=== PATIENT | female | born 1960 | race Caucasian/White ===

== ENCOUNTER 2018-08-19 13:24 | Emergency (ER) | payer BC, SELFPAY ==
[2018-08-19 13:27] VITALS: BP 154/77; PULSE 78; RESP 16; TEMP 36.6; O2SAT 98
--- NOTE | 2018-08-19 13:39 | DI.CT_ITS ---
SYMPTOM/DIAGNOSIS: RT SUPRACLAVICULAR PAIN, FOREIGN BODY SENSATION NECK CT: CT scan of the neck was performed following the uneventful administration of intravenous contrast material. There are no priors for comparison. The visualized intracranial structures are unremarkable. The orbits and retro-orbital soft tissues are unremarkable. The parotid and submandibular glands have a normal appearance. The nasopharynx, oropharynx, hypopharynx and larynx are all unremarkable. The epiglottis has a normal appearance. The thyroid gland is unremarkable. No significant cervical adenopathy is seen. No focal fluid collection or soft tissue mass is appreciated. The lung apices are clear. Mild degenerative changes are seen in the spine. IMPRESSION: No acute abnormality.
--- NOTE | 2018-08-19 13:42 | ED.GENADUL_ITS ---
Discharge Plan Disposition Patient Disposition: HOME Condition: Improving Discharge Details Chief Complaint: ThroatFB Clinical Impression: Pill esophagitis Primary Care Provider: Yuko,Local ED Provider: Mike Mehta Home Meds and New Rx's Prescriptions: Continued levothyroxine [Synthroid] 100 mcg Tablet 100 mcg PO DAILY RF: 0 magnesium oxide 400 mg magnesium Tablet PO DAILY RF: 0 Discharge Instructions Additional Instructions: Home to rest this evening. Observe a soft diet for 24 hours and then may slowly advance as tolerated. Return for difficulty swallowing or breathing, or any other acute concerns Continue your regular medications. Medical Decision Making 58-year-old female with right throat foreign body sensation after swallowing 2 magnesium capsules last night and feeling that they got stuck. She had no vomiting. No drooling. She has had discomfort with swallowing but has been able to take liquids by mouth. She is slightly hypertensive at 150/77 but with otherwise normal vital signs. Her exam is reassuring. Referred for screening laboratories and CT scan of the neck with IV contrast to rule out retained foreign body, abscess, perforation. CBC and chemistries unremarkable. CT scan does not reveal any acute findings of the right supraclavicular fossa. Patient stable and improved with GI cocktail. I will have her maintain a soft diet for 24 hours and then slowly resume normal routine and diet as tolerated. HPI General Mode of arrival: ambulatory . Date/Time Provider Initiated Documentation: 08/19/18 13:25 . Limitations to Documentation: no limitations . Information obtained by: patient . History of Present Illness 58 year old F presents to the emergency department with the chief complaint of Foreign body sensation right throat since last night, described as moderate, Quality is described as aching, and is localized to the mouth and right. Patient reports no radiation. and it has been constant. No relieving factors improve symptom(s), Eating worsens symptoms and Other factors that worsen symptoms . Patient notes no other symptoms.. Patient did receive the following treatments prior to arrival, none Related Data Home Medications Medication Instructions Recorded Confirmed levothyroxine [Synthroid] 100 mcg PO DAILY 08/19/18 08/19/18 magnesium oxide mg PO DAILY 08/19/18 Allergies Allergy/AdvReac Type Severity Reaction Status Date / Time No Known Allergies Allergy Unverified 08/19/18 13:33 General Stated Complaint: ThroatFB ALEXX: 3 Review of Systems Review of Systems Mild headache no difficulty breathing, no drooling, tolerating liquids by mouth. No recent illness. 8 systems reviewed and otherwise negative [facility] Social History Smoking/Tobacco Use Status: Never Substance use type: does not use Do you feel safe at home: Yes Do you feel safe in your relationship?: Yes Exam Narrative Exam Narrative: GEN: awake, alert, oriented 3. Pleasant, well groomed, interactive. HEAD: Normocephalic, atraumatic ENT: Mucous membranes moist, oropharynx unremarkable, External ear exam unremarkable EYES: PERRL, EOMI NECK: Full ROM, no KAYLA, no menigismus CHEST/RESP: Nontender, clear to auscultation bilateral, no wheeze/rhonchi/rales CARDIOVASCULAR: RRR, no murmur, rub padmini. 2+ Rad pulse bilateral ABDOMEN: Soft, nontender, no mass. +Bowel sounds EXT: Full ROM, no edema, no rash Neuro: Grossly normal neurologic exam, conversant, interactive. Psych: Speech fluent, thoughts congruent, affect anxious Course Vital Signs Temperature 36.6 C 08/19/18 13:27 Pulse 78 08/19/18 13:27 Respiratory Rate 16 08/19/18 13:27 Blood Pressure 154/77 H 08/19/18 13:27 Pulse Oximetry 98 08/19/18 13:27 Temperature 36.6 C 08/19/18 13:27 Temperature Source Skin 08/19/18 13:27 Pulse 78 08/19/18 13:27 Respiratory Rate 16 08/19/18 13:27 Respiratory Effort 08/19/18 13:35 Blood Pressure 154/77 H 08/19/18 13:27 Pulse Oximetry 98 08/19/18 13:27 Oxygen Delivery Method Room Air 08/19/18 13:27 Oxygen Flow Rate 0 08/19/18 13:27 Pain Level 4 08/19/18 13:27 Comment 08/19/18 13:27
[2018-08-19 14:24] LABS: Anion Gap 9.7 mmol/L (3-11); BUN 13 mg/dL (7-18); CO2 28.3 mmol/L (21.0-32.0); Chloride 103 mmol/L (98-107); Glucose 108 mg/dL (70-100); Potassium 3.6 mmol/L (3.5-5.1); Sodium 141 mmol/L (136-145)
[2018-08-19] MEDS: Ketorolac 15 MG/ML VIAL IVP (14:27)
[2018-08-19] MEDS: Normal Saline 1,000 ML 150 ML IV (14:28)
[2018-08-19 14:33] LABS: Abs Immature Grans 0.03 k/cumm (0.0-0.09); Absolute Basophil Count 0.04 k/cumm (0.0-0.2); Absolute Eosinophil Count 0.13 k/cumm (0.0-0.7); Absolute Monocyte Count 0.57 k/cumm (0.11-0.7); Absolute Neutrophil Count 8.02 k/cumm (1.2-6.7); Basophils % 0.4; Eosinophils % 1.3; HCT 36.4 % (36.0-46.0); HGB 12.1 g/dL (12.0-15.5); Immature Grans % 0.3; Lymphocytes % 13.7; Mean Corp. HGB Concentration 33.2 g/dL (32.0-36.0); Mean Corpuscular Hemoglobin 30.7 pg (27.0-33.0); Mean Corpuscular Volume 92.4 fL (80-95); Mean Platelet Volume 9.6 fL (8.0-11.0); Monocytes % 5.6; Neutrophils % 78.7; Platelet Count 262 x1000/uL (130-400); RBC 3.94 m/cumm (4.00-5.20); RBC Distribution Width 11.9 % (11.7-14.6); White Blood Cell Count 10.19 k/cumm (4.4-10.8)
[2018-08-19] MEDS: Omnipaque 350 MG/ML 100 ML BTL IV (15:11)
[2018-08-19] MEDS: Normal Saline Flush 10 ML SYR IVP (15:12)
--- NOTE | 2018-08-19 15:42 | DI.VRAD_ITS ---
EXAM: CT Neck With Contrast EXAM DATE/TIME: 08/19/2018 1:41 PM CLINICAL HISTORY: 58 years old, female; Signs and symptoms; Other: R supra clavicular pain, fb sensation TECHNIQUE: Imaging protocol: Axial computed tomography images of the neck with intravenous contrast. Coronal and sagittal reformatted images were created and reviewed. Radiation optimization: All CT scans at this facility use at least one of these dose optimization techniques: automated exposure control; mA and/or kV adjustment per patient size (includes targeted exams where dose is matched to clinical indication); or iterative reconstruction. Contrast material: OMNIPAQUE 350 Contrast volume: 100 ml Contrast route: IV COMPARISON: No relevant prior studies available. FINDINGS: Nasopharynx: Normal. Oropharynx: Normal. No significant tonsillar enlargement. Hypopharynx: Normal. Larynx: Normal. Normal epiglottis. Retropharyngeal space: Normal. Submandibular/Parotid glands: Normal. Glands are normal in size. Thyroid: Normal. No enlarged or calcified nodules. Lymph nodes: Normal. No lymphadenopathy. Trachea: Visualized trachea is unremarkable. Lungs: Normal as visualized. Vasculature: No acute findings. Bones/joints: Mild degenerative spondylosis of the cervical spine. Soft tissues: No supraclavicular mass, lymphadenopathy, or radiopaque foreign body. IMPRESSION: No mass, lymphadenopathy, or foreign body identified within the right supraclavicular fossa. Dictated and Authenticated by: Dom Mclean MD. Ordering:NAVEEN Mckeon MD
[2018-08-19 16:13] VITALS: BP 136/77; PULSE 84; RESP 18; TEMP 36.8; O2SAT 97
== END 2018-08-19 16:17 | disposition home or self-care (01) ==
PROVIDERS: Emergency Provider Emergency Medicine
DX: K20.8 Other esophagitis (principal)
CPT/HCPCS: 36415; 70491; 80048; 96374; 99285; 85025; 99284; J1885; J3490